=== PATIENT | male | born 1945 | race Caucasian/White ===

== ENCOUNTER 2023-10-16 19:20 | Inpatient (IN) | payer MEDICARE, OTHER ==
[~2023-10-16] VITALS: Ht 162.6 cm; Wt 82.1 kg
[2023-10-16] MEDS: IV NS 0.9% 1,000 ML BAG IV ONE (20:01)
[2023-10-16 20:12] LABS: BASOPHILS % (AUTO) 0.4 % (0.0-2.0); EOSINOPHILS # (AUTO) 0.1 K/uL (0.0-0.7); EOSINOPHILS % (AUTO) 2.3 % (0.0-6.0); HEMATOCRIT 38 % (39-51); HEMOGLOBIN 12.7 g/dL (13.5-17.5); LYMPHOCYTES # (AUTO) 0.4 K/uL (0.8-4.8); LYMPHOCYTES % (AUTO) 10.6 % (20.0-44.0); MEAN CORPUSCULAR HEMOGLOBIN 29 PG (26.0-33.0); MEAN CORPUSCULAR HGB CONC 34 g/dl (31.0-36.0); MEAN CORPUSCULAR VOLUME 87 fL (80-96); MONOCYTES # (AUTO) 0.2 K/uL (0.1-1.30); MONOCYTES % (AUTO) 5.2 % (2.0-12.0); NEUTROPHILS # (AUTO) 3.2 K/uL (1.8-8.9); NEUTROPHILS % (AUTO) 81.5 % (43.0-81.0); PLATELET COUNT (AUTO) 181 K/uL (150-450); RED BLOOD CELL COUNT(AUTO) 4.38 MIL/uL (4.5-6.0); RED CELL DISTRIBUTION WIDTH 15.5 % (11.5-15.0)
[2023-10-16 20:35] LABS: CALCIUM, SERUM 9.2 mg/dL (8.5-10.1); CARBON DIOXIDE 25 mmol/L (21-32); CHLORIDE 103 mmol/L (98-107); CREATININE 0.7 mg/dL (0.6-1.3); GLUCOSE 120 mg/dL (74-106); POTASSIUM 4.1 mmol/L (3.5-5.1); SODIUM SERUM 139 mmol/L (136-145); UREA NITROGEN, BLOOD 19 mg/dL (7-18)
[2023-10-16 20:38] LABS: ALANINE AMINOTRANSFERASE 38 U/L (12-78); ALCOHOL, BLOOD 3 mg/dL (0-10); ALKALINE PHOSPHATASE 139 U/L (46-116); ASPARTATE AMINOTRANSFERASE 22 U/L (15-37); BILIRUBIN,DIRECT 0.2 mg/dL (0.0-0.2); BILIRUBIN,TOTAL 0.5 mg/dL (0.2-1.0); TOTAL PROTEIN, SERUM 7.9 g/dL (6.4-8.2)
[2023-10-16 20:42] LABS: LACTIC ACID 1.1 mmol/L (0.4-2.0)
[2023-10-16] MEDS ORDERED: MAG HYDROX/AL HYDROX/SIMETH 30 ML UDC PO PRN (22:30)
[2023-10-16] MEDS ORDERED: Z GUARD REMEDY 4 OZ OINT TP PRN (22:30)
[2023-10-16] MEDS ORDERED: LORAZEPAM INJ 2 MG/ML VIAL IV PRN (22:30)
[2023-10-16] MEDS ORDERED: MAGNESIUM HYDROXIDE 30 ML UDC PO PRN (22:30)
[2023-10-16] MEDS ORDERED: ONDANSETRON HCL/PF 4 MG/2 ML VIAL IVP PRN (22:30)
[2023-10-16 22:32] LABS: AMPHETAMINE, URINE NEGATIVE (NEGATIVE); BARBITURATE, URINE NEGATIVE (NEGATIVE); BENZODIAZEPINE, URINE NEGATIVE (NEGATIVE); CANNABINOID, URINE NEGATIVE (NEGATIVE); COCCAINE, URINE NEGATIVE (NEGATIVE); OPIATE, URINE NEGATIVE (NEGATIVE); PHENCYCLIDINE SCREEN,URINE NEGATIVE (NEGATIVE)
[2023-10-16 22:40] LABS: APPEARANCE,URINE CLEAR (CLEAR); BILIRUBIN,URINE NEGATIVE (NEGATIVE); BLOOD, URINE NEGATIVE Ery/uL (NEGATIVE); COLOR,URINE YELLOW (YELLOW); KETONES,URINE NEGATIVE (NEGATIVE); LEUKOCYTE ESTERASE ,URINE NEGATIVE (NEGATIVE); NITRITE, URINE NEGATIVE (NEGATIVE); PROTEIN,URINE NEGATIVE (NEGATIVE); UGLUCOSE NEGATIVE (NEGATIVE); UROBILINOGEN,URINE 0.2 EU/dL (0.2)
[2023-10-16] MEDS ORDERED: LEVETIRACETAM (500MG) 1,000 MG in IV NS 0.9% 90 ML IV SCH (23:00)
[2023-10-17] MEDS: IV NS 0.9% 1,000 ML IV SCH (00:14)
[2023-10-17] MEDS: ACETAMINOPHEN 325 MG TABLET PO PRN (00:52)
[2023-10-17] MEDS ORDERED: LEVETIRACETAM (500MG) 500 MG/5 ML VIAL IV ONE (00:52)
[2023-10-17] MEDS: LEVETIRACETAM (500MG) 500 MG in IV NS 0.9% 100 ML IV SCH ×2 (01:04→09:09)
[2023-10-17 07:08] LABS: BASOPHILS # (AUTO) 0.1 K/uL (0.0-0.2); BASOPHILS % (AUTO) 1.9 % (0.0-2.0); EOSINOPHILS # (AUTO) 0.2 K/uL (0.0-0.7); EOSINOPHILS % (AUTO) 6.5 % (0.0-6.0); HEMATOCRIT 33 % (39-51); HEMOGLOBIN 11.3 g/dL (13.5-17.5); LYMPHOCYTES # (AUTO) 0.5 K/uL (0.8-4.8); LYMPHOCYTES % (AUTO) 19.3 % (20.0-44.0); MEAN CORPUSCULAR HEMOGLOBIN 30 PG (26.0-33.0); MEAN CORPUSCULAR HGB CONC 34 g/dl (31.0-36.0); MEAN CORPUSCULAR VOLUME 87 fL (80-96); MONOCYTES # (AUTO) 0.3 K/uL (0.1-1.30); MONOCYTES % (AUTO) 9.7 % (2.0-12.0); NEUTROPHILS # (AUTO) 1.8 K/uL (1.8-8.9); NEUTROPHILS % (AUTO) 62.6 % (43.0-81.0); PLATELET COUNT (AUTO) 157 K/uL (150-450); RED CELL DISTRIBUTION WIDTH 15.3 % (11.5-15.0); WHITE BLOOD COUNT (AUTO) 2.8 K/uL (4.3-11.0)
[2023-10-17 08:00] VITALS: BP 125/70; TEMP 98.4; O2SAT 99
[2023-10-17 08:00] LABS: CALCIUM, SERUM 8.6 mg/dL (8.5-10.1); CARBON DIOXIDE 21 mmol/L (21-32); CHLORIDE 109 mmol/L (98-107); CREATININE 0.6 mg/dL (0.6-1.3); GLUCOSE 131 mg/dL (74-106); MAGNESIUM 1.8 mg/dL (1.8-2.4); PHOSPHORUS 3.6 mg/dL (2.5-4.9); POTASSIUM 3.4 mmol/L (3.5-5.1); SODIUM SERUM 141 mmol/L (136-145); UREA NITROGEN, BLOOD 16 mg/dL (7-18)
[2023-10-17] MEDS ORDERED: CLOP75TA15 PO (08:36)
[2023-10-17] MEDS ORDERED: ATOR80TA PO (08:36)
[2023-10-17] MEDS ORDERED: DOCU-141 PO (08:36)
[2023-10-17] MEDS ORDERED: ASPI-1169 PO (08:36)
[2023-10-17] MEDS ORDERED: CHOL100043 PO (08:36)
[2023-10-17] MEDS ORDERED: MAGN400O6 PO (08:36)
[2023-10-17] MEDS ORDERED: AMOX250C PO (08:36)
[2023-10-17] MEDS ORDERED: LEVE100023 PO (08:36)
[2023-10-17] MEDS ORDERED: BISA10SU12 RC (08:36)
[2023-10-17] MEDS ORDERED: LOSA25TA27 PO (08:36)
[2023-10-17] MEDS ORDERED: GABA300C PO (08:36)
[2023-10-17] MEDS ORDERED: FAMO40TA7 PO (08:36)
[2023-10-17] MEDS ORDERED: ISOS10TA2 PO (08:36)
[2023-10-17] MEDS ORDERED: BISACODYL SUPP (10 MG) 10 MG/SUPP.RECT SUPP.RECT RC PRN (10:00)
[2023-10-17] MEDS ORDERED: MAGNESIUM HYDROXIDE 30 ML UDC PO PRN (10:00)
[2023-10-17] MEDS: POTASSIUM CHLORIDE 20 MEQ TAB.PRT.SR PO ONE (10:16)
[2023-10-17] MEDS ORDERED: POTASSIUM CHLORIDE 20 MEQ TAB.PRT.SR PO SCH (10:30)
[2023-10-17] MEDS: GABAPENTIN 300 MG CAPSULE PO SCH (12:23)
[2023-10-17 16:00] VITALS: BP 111/58; TEMP 99.4; O2SAT 99
[2023-10-17] MEDS: LEVETIRACETAM (250 MG) 250 MG TABLET PO SCH (16:06)
[2023-10-17] MEDS: ISOSORBIDE DINITRATE (10MG) 10 MG TABLET PO SCH (16:06)
[2023-10-17 21:00] VITALS: BP 127/76; TEMP 98; O2SAT 98
[2023-10-18] MEDS: LEVETIRACETAM (250 MG) 250 MG TABLET PO SCH (06:08)
[2023-10-18 06:38] LABS: BASOPHILS % (AUTO) 0.7 % (0.0-2.0); EOSINOPHILS # (AUTO) 0.1 K/uL (0.0-0.7); EOSINOPHILS % (AUTO) 4.7 % (0.0-6.0); HEMATOCRIT 37 % (39-51); HEMOGLOBIN 12.2 g/dL (13.5-17.5); LYMPHOCYTES # (AUTO) 0.6 K/uL (0.8-4.8); LYMPHOCYTES % (AUTO) 19.9 % (20.0-44.0); MEAN CORPUSCULAR HEMOGLOBIN 30 PG (26.0-33.0); MEAN CORPUSCULAR HGB CONC 33 g/dl (31.0-36.0); MEAN CORPUSCULAR VOLUME 88 fL (80-96); MONOCYTES # (AUTO) 0.3 K/uL (0.1-1.30); MONOCYTES % (AUTO) 9.6 % (2.0-12.0); NEUTROPHILS # (AUTO) 1.9 K/uL (1.8-8.9); NEUTROPHILS % (AUTO) 65.1 % (43.0-81.0); PLATELET COUNT (AUTO) 150 K/uL (150-450); RED BLOOD CELL COUNT(AUTO) 4.13 MIL/uL (4.5-6.0); RED CELL DISTRIBUTION WIDTH 15.9 % (11.5-15.0); WHITE BLOOD COUNT (AUTO) 2.9 K/uL (4.3-11.0)
[2023-10-18 07:02] LABS: CALCIUM, SERUM 8.9 mg/dL (8.5-10.1); CARBON DIOXIDE 23 mmol/L (21-32); CHLORIDE 107 mmol/L (98-107); CREATININE 0.4 mg/dL (0.6-1.3); GLUCOSE 101 mg/dL (74-106); POTASSIUM 3.9 mmol/L (3.5-5.1); SODIUM SERUM 139 mmol/L (136-145); UREA NITROGEN, BLOOD 14 mg/dL (7-18)
[2023-10-18 08:00] VITALS: BP 150/70; TEMP 98.1; O2SAT 98
[2023-10-18 08:46] VITALS: BP 118/94; TEMP 98.4; O2SAT 98
[2023-10-18] MEDS: ASPIRIN 81 MG TAB.CHEW PO SCH (08:47)
[2023-10-18] MEDS: FAMOTIDINE (20 MG) 20 MG TABLET PO SCH (08:47)
[2023-10-18] MEDS: CHOLECALCIFEROL 1,000 UNIT TABLET (VIT D3) PO SCH (08:47)
[2023-10-18] MEDS: DOCUSATE SODIUM 100 MG CAPSULE PO SCH (08:47)
[2023-10-18] MEDS: LOSARTAN POTASSIUM 25 MG TABLET PO SCH (08:48)
[2023-10-18] MEDS: CLOPIDOGREL BISULFATE 75 MG TABLET PO SCH (08:48)
[2023-10-18] MEDS: ATORVASTATIN 40 MG TABLET PO SCH (08:48)
[2023-10-18] MEDS ORDERED: LEVE250T2 PO (10:22)
[2023-10-18 16:00] VITALS: BP 130/81; TEMP 97.7; O2SAT 98
== END 2023-10-18 16:40 | DRG 101 ==
LOC: ER 19:23 → MED 22:47
PROVIDERS: ADMIT Internal Medicine; ATTEND Internal Medicine
DX: G40.909 Epilepsy, unspecified, not intractable, without status epilepticus (principal); I69.354 Hemiplegia and hemiparesis following cerebral infarction affecting left non-dominant side; I50.9 Heart failure, unspecified; I11.0 Hypertensive heart disease with heart failure; F03.90 Unspecified dementia, unspecified severity, without behavioral disturbance, psychotic disturbance, mood disturbance, and anxiety; E78.5 Hyperlipidemia, unspecified; E11.9 Type 2 diabetes mellitus without complications; K21.9 Gastro-esophageal reflux disease without esophagitis; R13.10 Dysphagia, unspecified; Z95.2 Presence of prosthetic heart valve; E87.6 Hypokalemia; H91.90 Unspecified hearing loss, unspecified ear; R79.89 Other specified abnormal findings of blood chemistry
CPT/HCPCS: 36415; 70450-TC; 71045-TC; 73030-TC; 80048-TC; 80076-TC; 82962-TC; 83605-TC; 83735-TC; 84100-TC; 84443-TC; 85025-TC; 87040-TC; 97110-TC; 97116-TC; 97530-TC; A4223; G0378; G0480; J1953; J7030